=== PATIENT | female | born 1990 | race American Indian/Alaskan Native ===

== ENCOUNTER 2016-12-15 21:41 | Inpatient (IN) | payer BC ==
[~2016-12-15 21:41] MED LIST: Oxytocin 10 Units/1 ML SDV IM ONE
[2016-12-15] MEDS ORDERED: Sodium Chloride 0.9% 10 ML Syringe FLUSH PRN (22:35)
[2016-12-15] MEDS ORDERED: Ampicillin 2 GM in Sodium Chloride 0.9% 100 ML IV ONE ×2 (22:35→23:00)
[2016-12-15] MEDS ORDERED: Ampicillin 1 GM in Sodium Chloride 0.9% 50 ML IV SCH (23:00)
[2016-12-15] MEDS: Lactated Ringers 1,000 ML IV SCH (23:10)
[2016-12-15] MEDS ORDERED: Ampicillin 1 GM AdvVial IV ONE (23:14)
[2016-12-16] MEDS ORDERED: Oxytocin 10 UNIT in Sodium Chloride 0.9% 1,000 ML IV SCH (02:00)
[2016-12-16] MEDS ORDERED: Calcium Carbonate 500 MG Tab.Chew PO PRN ×2 (02:43→10:39)
[2016-12-16] MEDS: Ampicillin 1 GM in Sodium Chloride 0.9% 50 ML IV SCH ×4 (03:03→15:30)
[2016-12-16] MEDS ORDERED: fentaNYL 300 MCG in Ropivacaine 200 ML IV ONE (05:45)
[2016-12-16] MEDS ORDERED: fentaNYL 100 MCG/2 ML SDV IV ONE (05:45)
[2016-12-16] MEDS: Lactated Ringers 1,000 ML IV SCH ×3 (06:35→18:23)
[2016-12-16] MEDS ORDERED: ePHEDrine 50 MG/ML SDV IVPUSH PRN ×2 (08:54→12:41)
[2016-12-16] MEDS ORDERED: Naloxone 0.4 MG in Sodium Chloride 0.9% 100 ML IV PRN ×2 (08:54→12:41)
[2016-12-16] MEDS ORDERED: Naloxone 0.4 MG/ML SDV IVPUSH PRN ×3 (08:54→12:41)
[2016-12-16] MEDS ORDERED: diphenhydrAMINE 50 MG/ML SDV IVPUSH PRN ×3 (08:54→12:41)
[2016-12-16] MEDS ORDERED: Promethazine 25 MG/ML SDV IV PRN ×2 (08:54→12:41)
[2016-12-16] MEDS ORDERED: hydrOXYzine HCl 50 MG/ML SDV IM PRN ×3 (08:57→12:41)
[2016-12-16] MEDS ORDERED: Ondansetron 4 MG/2 ML SDV IVPUSH PRN ×2 (08:59→12:47)
[2016-12-16] MEDS ORDERED: ROPIVACAINE IV ONE (10:25)
[2016-12-16] MEDS ORDERED: fentaNYL 100 MCG/2 ML SDV EPIDUR ONE (10:25)
[2016-12-16] MEDS ORDERED: Morphine PF 10 MG/10 ML SDV EPIDUR ONE (10:25)
[2016-12-16] MEDS ORDERED: FENTANYL IV ONE (10:25)
[2016-12-16] MEDS ORDERED: Scopolamine 1.5 MG Transdermal Patch TOP SCH (12:41)
[2016-12-16] MEDS ORDERED: Nalbuphine 10 MG/1 ML Vial IVPUSH PRN (12:41)
[2016-12-16] MEDS ORDERED: Naltrexone 50 MG Tab PO PRN (12:45)
[2016-12-16] MEDS ORDERED: Naltrexone 50 MG Tab PO SCH (12:45)
--- NOTE | 2016-12-16 14:25 | PCM.HPR ---
H & P Addendum review - H & P Addendum Review Date of Original H & P: 12/15/16 Date Reviewed: 12/16/16 Time Reviewed: 13:00 Patient was examined: Changes Please note any Changes: now at 39w0d with PAPI: 12/23/2016. presented to [facility] for SROM around 2030 for clear moderate fluids. seen in the clinic prior that day and exam as noted in H&P. NO cervical change/station/presentation-per nursing intact. No fevers or merino. no n/v. no vaginal bleeding or painful urterine contractions with good movement. GBS + without allergies so started on ampicillin. will watch for onset progression from latent phase to active phase labor. - Problem List (1) SROM (spontaneous rupture of membranes) SNOMED Code(s): 134256223 ICD Code: [id number] - Status: Acute Priority: High Current Visit: Yes Onset Date: 12/15/16 Problem Details: Clear-moderate (2) First stage of labor SNOMED Code(s): 1385123 ICD Code: [id number] - Status: Acute Priority: High Current Visit: Yes Onset Date: 12/15/16 (3) Normal , first SNOMED Code(s): 11022664, 251782758, 608430848, 606811533 ICD Code: Z34.00 - ENCNTR FOR SUPRVSN OF NORMAL FIRST , UNSP TRIMESTER Status: Acute Current Visit: Yes Qualifiers: Trimester: third trimester Qualified Code(s): Z34.03 - Encounter for supervision of normal first , third trimester (4) Group B Streptococcus carrier, antepartum SNOMED Code(s): 3953622805167 ICD Code: O99.820 - STREPTOCOCCUS B CARRIER STATE COMPLICATING Status: Acute Priority: High Current Visit: Yes Problem Details: Ampicillin per GBS protocol. (5) Antepartum anemia SNOMED Code(s): 859411035 ICD Code: O99.019 - ANEMIA COMPLICATING , UNSPECIFIED TRIMESTER Status: Chronic Priority: Medium Current Visit: Yes Qualifiers: Trimester: third trimester Qualified Code(s): O99.013 - Anemia complicating , third trimester (6) Analgesia SNOMED Code(s): 76797056 ICD Code: R20.0 - ANESTHESIA OF SKIN Status: Acute Priority: High Current Visit: Yes Problem Details: Epidural placement failed. Intrathecal given. (7) Blood type A+ SNOMED Code(s): 545064318 ICD Code: Z67.10 - TYPE A BLOOD, RH POSITIVE Status: Chronic Current Visit: Yes (8) Not immune to rubella SNOMED Code(s): 141832160 ICD Code: Z78.9 - OTHER SPECIFIED HEALTH STATUS Status: Chronic Current Visit: Yes Problem Details: will receive immunization post . (9) History of depression SNOMED Code(s): 198605144 ICD Code: Z86.59 - PERSONAL HISTORY OF OTHER MENTAL AND BEHAVIORAL DISORDERS Status: Inactive Current Visit: Yes Problem Details: after several attemps/failed. will monitor site. (10) History of epidural anesthesia SNOMED Code(s): 531722067 ICD Code: Z98.890 - OTHER SPECIFIED POSTPROCEDURAL STATES Status: Acute Priority: High Current Visit: Yes Problem List Initiated/Reviewed/Updated: Yes Orders Last 24hrs: Active Orders 24 hr Category Date Time Status Patient Status [ADT] Routine ADT 12/15/16 22:35 Active Antiembolic Devices [RC] .Routine Care 12/16/16 14:14 Ordered Communication Order [RC] ASDIRECTED Care 12/15/16 22:35 Active Heart Tones [RC] PER UNIT ROUTINE Care 12/16/16 14:11 Ordered Notify Provider Vital Signs [RC] PRN Care 12/15/16 22:35 Active Notify Provider [RC] PRN Care 12/15/16 22:35 Active Up ad Rafaela [RC] ASDIRECTED Care 12/16/16 14:11 Ordered Up to Chair [RC] ASDIRECTED Care 12/16/16 14:11 Ordered VTE/DVT Education [RC] Click to Edit Care 12/16/16 14:14 Ordered Vital Signs [RC] PER UNIT ROUTINE Care 12/15/16 22:35 Active Nothing Per Oral Diet [DIET] Diet 12/16/16 Dinner Ordered CBC W/O DIFF,HEMOGRAM [HEME] AM Lab 12/17/16 05:11 Ordered Ampicillin 1 gm Med 12/16/16 11:00 Active Sodium Chloride 0.9% [Normal Saline] 50 ml IV Q4H Calcium Carbonate [Tums] Med 12/16/16 10:39 Active 500 mg PO Q2H PRN Lactated Ringers [Ringers, Lactated] 1,000 ml Med 12/15/16 22:45 Active IV ASDIRECTED Nalbuphine [Nubain] Med 12/16/16 12:41 Active 10 mg IVPUSH Q1H PRN Naloxone [Narcan] Med 12/16/16 08:54 Active 0.1 mg IVPUSH ASDIRECTED PRN Naloxone [Narcan] Med 12/16/16 12:41 Active 0.1 mg IVPUSH ASDIRECTED PRN Naloxone [Narcan] Med 12/16/16 12:41 Active 0.2 mg IVPUSH ASDIRECTED PRN Naloxone [Narcan] 0.4 mg Med 12/16/16 08:54 Active Sodium Chloride 0.9% [Normal Saline] 100 ml IV ASDIRECTED Naloxone [Narcan] 0.4 mg Med 12/16/16 12:41 Active Sodium Chloride 0.9% [Normal Saline] 100 ml IV ASDIRECTED Naltrexone Med 12/16/16 12:45 Active 50 mg PO ASDIRECTED PRN Naltrexone Med 12/16/16 12:45 Active 50 mg PO ONETIME Ondansetron [Zofran] Med 12/16/16 12:47 Active 4 mg IVPUSH Q6H PRN Oxytocin [Pitocin] 10 unit Med 12/16/16 02:00 Active Sodium Chloride 0.9% [Normal Saline] 1,000 ml IV TITRATE Promethazine [Phenergan] Med 12/16/16 12:41 Active 0 mg IV Q4H PRN Remove Patch Med 12/16/16 12:45 Active 1 ea TRDERM ASDIRECTED Scopolamine [Transderm-Scop] Med 12/16/16 12:41 Active 1.5 mg TOP ONETIME Sodium Chloride 0.9% [Saline Flush] Med 12/15/16 22:35 Active 10 ml FLUSH ASDIRECTED PRN diphenhydrAMINE [Benadryl] Med 12/16/16 08:54 Active 25 mg IVPUSH ASDIRECTED PRN diphenhydrAMINE [Benadryl] Med 12/16/16 12:41 Active 25 mg IVPUSH ASDIRECTED PRN ePHEDrine [ePHEDrine Sulfate] Med 12/16/16 12:41 Active 5 mg IVPUSH ASDIRECTED PRN hydrOXYzine HCl [Vistaril] Med 12/16/16 12:41 Active 25 - 50 mg IM Q4H PRN hydrOXYzine HCl [Vistaril] Med 12/16/16 12:41 Active 25 - 50 mg IM Q6H PRN DVT/VTE Prophylaxis Reflex [OM.PC] Routine Oth 12/16/16 14:11 Ordered Electronic Heart Tones Ext w TOCO [WOMSER] Oth 12/15/16 22:45 Ordered CONTINUOUS Peripheral IV Insertion Adult [OM.PC] Routine Oth 12/15/16 22:35 Ordered Saline Lock Insert [OM.PC] Routine Oth 12/15/16 22:35 Ordered Resuscitation Status Routine Resus Stat 12/15/16 22:35 Ordered Medication Orders Calcium Carbonate/Glycine (Tums) 500 mg PO Q2H PRN PRN Reason: Indigestion Diphenhydramine HCl (Benadryl) 25 mg IVPUSH ASDIRECTED PRN PRN Reason: PRURITUS Diphenhydramine HCl (Benadryl) 25 mg IVPUSH ASDIRECTED PRN PRN Reason: SEVERE EXTRAPYRAMIDAL SYMP Ephedrine Sulfate (Ephedrine Sulfate) 5 mg IVPUSH ASDIRECTED PRN PRN Reason: HYPOTENSION Hydroxyzine HCl (Vistaril) 25 - 50 mg IM Q6H PRN PRN Reason: PRURITUS Hydroxyzine HCl (Vistaril) 25 - 50 mg IM Q4H PRN PRN Reason: N/V Lactated Ringer's (Ringers, Lactated) 1,000 mls @ 125 mls/hr IV ASDIRECTED LEÓN Last Admin: 12/16/16 09:52 Dose: 125 mls/hr Infusion: 12/16/16 09:52 Dose: 125 mls/hr Admin: 12/16/16 06:35 Dose: 125 mls/hr Infusion: 12/16/16 06:35 Dose: 125 mls/hr Admin: 12/15/16 23:10 Dose: 125 mls/hr Oxytocin 10 unit/ Sodium (Chloride) 1,001 mls @ 12.01 mls/hr IV TITRATE LEÓN; 2 MUNITS/MIN PRN Reason: Protocol Last Titration: 12/16/16 13:33 Dose: 14 munits/min, 84.08 mls/hr Titration: 12/16/16 13:03 Dose: 12 munits/min, 72.07 mls/hr Titration: 12/16/16 12:00 Dose: 10 munits/min, 60.06 mls/hr Titration: 12/16/16 06:38 Dose: 8 munits/min, 48.04 mls/hr Titration: 12/16/16 03:35 Dose: 6 munits/min, 36.03 mls/hr Titration: 12/16/16 03:00 Dose: 4 munits/min, 24.02 mls/hr Admin: 12/16/16 02:25 Dose: 2 munits/min, 12.01 mls/hr Ampicillin Sodium 1 gm/ Sodium (Chloride) 50 mls @ 100 mls/hr IV Q4H LEÓN Last Admin: 12/16/16 11:40 Dose: 100 mls/hr Naloxone HCl 0.4 mg/ Sodium (Chloride) 101 mls @ 25 mls/hr IV ASDIRECTED PRN PRN Reason: PER ORDER OF ANESTHESIA Naloxone HCl 0.4 mg/ Sodium (Chloride) 101 mls @ 25 mls/hr IV ASDIRECTED PRN PRN Reason: RESPIRATORY STATUS Miscellaneous Information (Remove Patch) 1 ea TRDERM ASDIRECTED LEÓN Nalbuphine HCl (Nubain) 10 mg IVPUSH Q1H PRN PRN Reason: PRURITUS Naloxone HCl (Narcan) 0.1 mg IVPUSH ASDIRECTED PRN PRN Reason: RESPIRATORY STATUS Naloxone HCl (Narcan) 0.1 mg IVPUSH ASDIRECTED PRN PRN Reason: RESPIRATROY STATUS Naloxone HCl (Narcan) 0.2 mg IVPUSH ASDIRECTED PRN PRN Reason: REVERSAL Naltrexone HCl (Naltrexone) 50 mg PO ONETIME LEÓN Naltrexone HCl (Naltrexone) 50 mg PO ASDIRECTED PRN PRN Reason: REVERSAL Ondansetron HCl (Zofran) 4 mg IVPUSH Q6H PRN PRN Reason: nausea Promethazine HCl (Phenergan) 0 mg IV Q4H PRN PRN Reason: N/V Scopolamine (Transderm-Scop) 1.5 mg TOP ONETIME LEÓN Sodium Chloride (Saline Flush) 10 ml FLUSH ASDIRECTED PRN PRN Reason: Keep Vein Open Assessment/Plan Comment:: 1. monitor for onset labor. 2. start amp for gbs 3. pain management prn 4. up add rafaela 5. start pit at 4 hours if onset of labor not accomplished. 6. Anticipated . Please see scanned H&P for further details.
[2016-12-16] MEDS ORDERED: fentaNYL 100 MCG/2 ML SDV ITHECAL ONE (15:35)
[2016-12-16] MEDS: Oxytocin 10 Units/1 ML SDV IM ONE (19:12)
[2016-12-16] MEDS: Lidocaine 1% 20 ML MDV INJECT ONE (19:30)
--- NOTE | 2016-12-16 20:54 | PCM.DEL ---
L & D Note - General Info Date of Service: 12/16/16 Mother's Due Date: 12/23/16 - Delivery Note Labor: spontaneous, augmented by oxytocin Delivery Outcome: Livebirth Infant Delivery Method: Spontaneous Vaginal Delivery Delivery Mode: Spontaneous Presentation: Right Occiput Anterior (LIU) Nuchal cord: none Prep: povidone-iodine (betadine Anesthesia Type: Local, Intrathecal Anesthetic: lidocaine (xylocaine) 1% plain Local anesthetic volume: other (10 ml) Amniotic Fluid Description: Clear Episiotomy Type: None Laceration: 2nd degree, vaginal Suture type: vicryl Suture size: 3-0 Placenta: intact, spontaneous Cord: 3 vessels Estimated blood loss: 300 Resuscitation needed: No : bulb syringe, blanket used Provider: Megan Raya Score 1 min: 9 Score 5 min: 9 Second Stage Interventions: Reports: Encouragement Given, Laboring Down, Pushing Effectively, Pushing, McRobert's Position - General Info Date of Service: 12/16/16 - Patient Data Vitals - most recent: Last Vital Signs Temp 98.3 F 12/16/16 09:33 Pulse 68 12/16/16 09:33 Resp 18 12/16/16 09:33 BP 120/61 12/16/16 09:33 Pulse Ox 98 12/16/16 09:33 Weight - most recent: 117.934 kg I&O - last 24 hours: Intake & Output 12/16/16 12/16/16 12/16/16 06:59 14:59 22:59 Intake Total 600 1000 Output Total 500 625 Balance 100 375 Lab Results last 24 hrs: Laboratory Results - last 24 hr 12/15/16 Range/Units 22:48 WBC 10.1 (4.5-12.0) X10-3/uL RBC 4.20 (3.23-5.20) x10(6)uL Hgb 11.4 L (11.5-15.5) g/dL Hct 33.7 (30.0-51.3) % MCV 80.4 (80-96) fL MCH 27.1 L (27.7-33.6) pg MCHC 33.8 (32.2-35.4) g/dL RDW 13.2 (11.5-15.5) % Plt Count 352 (125-369) X10(3)uL MPV 7.9 (7.4-10.4) fL Add Manual Diff Yes Neutrophils % (Manual) 79 (46-82) % Lymphocytes % (Manual) 15 (13-37) % Monocytes % (Manual) 6 (4-12) % Med Orders - Current: Current Medications Calcium Carbonate/Glycine (Tums) 500 mg PO Q2H PRN PRN Reason: Indigestion Diphenhydramine HCl (Benadryl) 25 mg IVPUSH ASDIRECTED PRN PRN Reason: PRURITUS Diphenhydramine HCl (Benadryl) 25 mg IVPUSH ASDIRECTED PRN PRN Reason: SEVERE EXTRAPYRAMIDAL SYMP Ephedrine Sulfate (Ephedrine Sulfate) 5 mg IVPUSH ASDIRECTED PRN PRN Reason: HYPOTENSION Hydroxyzine HCl (Vistaril) 25 - 50 mg IM Q6H PRN PRN Reason: PRURITUS Hydroxyzine HCl (Vistaril) 25 - 50 mg IM Q4H PRN PRN Reason: N/V Lactated Ringer's (Ringers, Lactated) 1,000 mls @ 125 mls/hr IV ASDIRECTED LEÓN Last Admin: 12/16/16 18:23 Dose: 125 mls/hr Oxytocin 10 unit/ Sodium (Chloride) 1,001 mls @ 12.01 mls/hr IV TITRATE LEÓN; 2 MUNITS/MIN PRN Reason: Protocol Last Titration: 12/16/16 19:09 Dose: 16 munits/min, 96.09 mls/hr Ampicillin Sodium 1 gm/ Sodium (Chloride) 50 mls @ 100 mls/hr IV Q4H LEÓN Last Admin: 12/16/16 15:30 Dose: 100 mls/hr Naloxone HCl 0.4 mg/ Sodium (Chloride) 101 mls @ 25 mls/hr IV ASDIRECTED PRN PRN Reason: PER ORDER OF ANESTHESIA Naloxone HCl 0.4 mg/ Sodium (Chloride) 101 mls @ 25 mls/hr IV ASDIRECTED PRN PRN Reason: RESPIRATORY STATUS Miscellaneous Information (Remove Patch) 1 ea TRDERM ASDIRECTED LEÓN Nalbuphine HCl (Nubain) 10 mg IVPUSH Q1H PRN PRN Reason: PRURITUS Naloxone HCl (Narcan) 0.1 mg IVPUSH ASDIRECTED PRN PRN Reason: RESPIRATORY STATUS Naloxone HCl (Narcan) 0.1 mg IVPUSH ASDIRECTED PRN PRN Reason: RESPIRATROY STATUS Naloxone HCl (Narcan) 0.2 mg IVPUSH ASDIRECTED PRN PRN Reason: REVERSAL Naltrexone HCl (Naltrexone) 50 mg PO ONETIME LEÓN Naltrexone HCl (Naltrexone) 50 mg PO ASDIRECTED PRN PRN Reason: REVERSAL Ondansetron HCl (Zofran) 4 mg IVPUSH Q6H PRN PRN Reason: nausea Promethazine HCl (Phenergan) 0 mg IV Q4H PRN PRN Reason: N/V Scopolamine (Transderm-Scop) 1.5 mg TOP ONETIME LEÓN Last Admin: 12/16/16 15:27 Dose: 1.5 mg Sodium Chloride (Saline Flush) 10 ml FLUSH ASDIRECTED PRN PRN Reason: Keep Vein Open Discontinued Medications Ampicillin Sodium (Ampicillin) Confirm Administered Dose 2 gm IV .STK-MED ONE Stop: 12/15/16 23:15 Last Admin: 12/15/16 23:24 Dose: Not Given Calcium Carbonate/Glycine (Tums) 500 mg PO Q2H PRN PRN Reason: Indigestion Last Admin: 12/16/16 03:02 Dose: 500 mg Diphenhydramine HCl (Benadryl) 25 mg IVPUSH ASDIRECTED PRN PRN Reason: PRURITUS Ephedrine Sulfate (Ephedrine Sulfate) 5 mg IVPUSH ASDIRECTED PRN PRN Reason: HYPOTENSION Hydroxyzine HCl (Vistaril) 25 - 50 mg IM Q6H PRN PRN Reason: PRURITUS &/OR NV Ampicillin Sodium 2 gm/ Sodium (Chloride) 100 mls @ 200 mls/hr IV ONETIME ONE Stop: 12/15/16 23:29 Last Admin: 12/15/16 23:23 Dose: 200 mls/hr Ampicillin Sodium 1 gm/ Sodium (Chloride) 50 mls @ 100 mls/hr IV Q4H LEÓN Last Admin: 12/16/16 06:53 Dose: 100 mls/hr Ondansetron HCl (Zofran) 4 mg IVPUSH Q6H PRN PRN Reason: 1ST CHOICE FOR N/V Promethazine HCl (Phenergan) 6.25 - 12.5 mg IV Q4H PRN PRN Reason: NAUSEA AND VOMITING - Exam General: alert, oriented, cooperative HEENT: Mucous membr. moist/pink Neck: supple Lungs: Clear to auscultation, Normal respiratory effort Cardiovascular: Regular Rate, Regular Rhythm Abdomen: bowel sounds present, soft, no distension, rigidity, tenderness (as expected. fundus firm) (Female) Exam: Other (vaginal 2nd degree repair intact. cervix intact, no sign of PPH. VAG/Rect exam intact. ) Extremities: no calf tenderness, edema (trace) Skin: warm, dry. No: rash, ecchymosis Neurological: no new focal deficit Psy/Mental Status: alert, normal affect, normal mood - Problem List & Annotations (1) (normal spontaneous vaginal delivery) SNOMED Code(s): 16273744 Code(s): O80 - ENCOUNTER FOR FULL-TERM UNCOMPLICATED DELIVERY Status: Acute Current Visit: Yes Onset Date: 12/16/16 (2) Second degree perineal laceration during delivery, delivered SNOMED Code(s): 4917502 Code(s): O70.1 - SECOND DEGREE PERINEAL LACERATION DURING DELIVERY Status: Acute Priority: Medium Current Visit: Yes Onset Date: 12/16/16 (3) anemia SNOMED Code(s): 340845664 Code(s): O90.81 - ANEMIA OF THE PUERPERIUM Status: Acute Priority: Medium Current Visit: Yes Onset Date: 12/16/16 (4) Breast feeding status of mother SNOMED Code(s): 016627409 Code(s): Z39.1 - ENCOUNTER FOR CARE AND EXAMINATION OF LACTATING MOTHER Status: Acute Priority: High Current Visit: Yes Onset Date: 12/16/16 (5) Not immune to rubella SNOMED Code(s): 799868369 Code(s): Z78.9 - OTHER SPECIFIED HEALTH STATUS Status: Chronic Current Visit: Yes Annotation/Comment:: will receive immunization post . (6) Group B Streptococcus carrier, antepartum SNOMED Code(s): 1892764887986 Code(s): O99.820 - STREPTOCOCCUS B CARRIER STATE COMPLICATING Status: Resolved Priority: High Current Visit: Yes Annotation/Comment:: Ampicillin per GBS protocol. (7) Antepartum anemia SNOMED Code(s): 882436690 Code(s): O99.019 - ANEMIA COMPLICATING , UNSPECIFIED TRIMESTER Status: Chronic Priority: Medium Current Visit: Yes Qualifiers: Trimester: third trimester Qualified Code(s): O99.013 - Anemia complicating , third trimester (8) Group B Streptococcus carrier, delivered, current hospitalization SNOMED Code(s): 1714802044438, 7401968040952 Code(s): O99.824 - STREPTOCOCCUS B CARRIER STATE COMPLICATING CHILDBIRTH Status: Acute Current Visit: Yes (9) Analgesia SNOMED Code(s): 36941788 Code(s): R20.0 - ANESTHESIA OF SKIN Status: Resolved Priority: High Current Visit: Yes Annotation/Comment:: Epidural placement failed. Intrathecal given. (10) Blood type A+ SNOMED Code(s): 271070899 Code(s): Z67.10 - TYPE A BLOOD, RH POSITIVE Status: Chronic Current Visit : Yes (11) SROM (spontaneous rupture of membranes) SNOMED Code(s): 539347272 Code(s): MEN7171 - Status: Resolved Priority: High Current Visit: Yes Onset Date: 12/15/16 Annotation/Comment:: Clear-moderate (12) History of epidural anesthesia SNOMED Code(s): 391886213 Code(s): Z98.890 - OTHER SPECIFIED POSTPROCEDURAL STATES Status: Resolved Priority: High Current Visit: Yes (13) History of depression SNOMED Code(s): 578624875 Code(s): Z86.59 - PERSONAL HISTORY OF OTHER MENTAL AND BEHAVIORAL DISORDERS Status: Inactive Current Visit: Yes Annotation/Comment:: (14) First stage of labor SNOMED Code(s): 9662429 Code(s): EVF5141 - Status: Resolved Priority: High Current Visit: Yes Onset Date: 12/15/16 (15) Normal , first SNOMED Code(s): 89943021, 897134561, 985328462, 766356693 Code(s): Z34.00 - ENCNTR FOR SUPRVSN OF NORMAL FIRST , UNSP TRIMESTER Status: Resolved Current Visit: Yes Qualifiers: Trimester: third trimester Qualified Code(s): Z34.03 - Encounter for supervision of normal first , third trimester - Problem List Review Problem List Initiated/Reviewed/Updated: Yes - My Orders Last 24 Hours: My Active Orders 12/15/16 22:35 Patient Status [ADT] Routine Communication Order [RC] ASDIRECTED Notify Provider Vital Signs [RC] PRN Notify Provider [RC] PRN Vital Signs [RC] PER UNIT ROUTINE Sodium Chloride 0.9% [Saline Flush] 10 ml FLUSH ASDIRECTED PRN Peripheral IV Insertion Adult [OM.PC] Routine Saline Lock Insert [OM.PC] Routine Resuscitation Status Routine 12/15/16 22:45 Lactated Ringers [Ringers, Lactated] 1,000 ml IV ASDIRECTED Electronic Heart Tones Ext w TOCO [WOMSER] CONTINUOUS 12/16/16 02:00 Oxytocin [Pitocin] 10 unit Sodium Chloride 0.9% [Normal Saline] 1,000 ml IV TITRATE 12/16/16 10:39 Calcium Carbonate [Tums] 500 mg PO Q2H PRN 12/16/16 11:00 Ampicillin 1 gm Sodium Chloride 0.9% [Normal Saline] 50 ml IV Q4H 12/16/16 12:41 Nalbuphine [Nubain] 10 mg IVPUSH Q1H PRN Naloxone [Narcan] 0.1 mg IVPUSH ASDIRECTED PRN Naloxone [Narcan] 0.2 mg IVPUSH ASDIRECTED PRN Naloxone [Narcan] 0.4 mg Sodium Chloride 0.9% [Normal Saline] 100 ml IV ASDIRECTED Promethazine [Phenergan] 0 mg IV Q4H PRN Scopolamine [Transderm-Scop] 1.5 mg TOP ONETIME diphenhydrAMINE [Benadryl] 25 mg IVPUSH ASDIRECTED PRN ePHEDrine [ePHEDrine Sulfate] 5 mg IVPUSH ASDIRECTED PRN hydrOXYzine HCl [Vistaril] 25 - 50 mg IM Q4H PRN hydrOXYzine HCl [Vistaril] 25 - 50 mg IM Q6H PRN 12/16/16 12:45 Naltrexone 50 mg PO ASDIRECTED PRN Naltrexone 50 mg PO ONETIME Remove Patch 1 ea TRDERM ASDIRECTED 12/16/16 12:47 Ondansetron [Zofran] 4 mg IVPUSH Q6H PRN 12/16/16 14:11 Heart Tones [RC] PER UNIT ROUTINE Up ad Stephanie [RC] ASDIRECTED Up to Chair [RC] ASDIRECTED DVT/VTE Prophylaxis Reflex [OM.PC] Routine 12/16/16 14:14 Antiembolic Devices [RC] .Routine VTE/DVT Education [RC] Click To Edit 12/16/16 16:25 Urinary Catheter Assessment [RC] QSHIFT 12/16/16 16:30 Urinary Catheter Insertion [Insert Urinary Catheter] [OM.PC] Q24H 12/16/16 Dinner Nothing Per Oral Diet [DIET] 12/17/16 05:11 CBC W/O DIFF,HEMOGRAM [HEME] AM - Plan Plan:: DAY: 0 1. Healthy mom/ with uncomplicated vaginal delivery. 2. Recieved amp for gbs 3. pain management prn 4. up add stephanie, and routine monitoring and post cares. 5. plans to breast feed. labs in the morning. Debriefed on labor/delivery/repair/ status and expected course of cares. all questions answered and she agrees with planned management. Anticipate discharge with in 48-72h.
[2016-12-16] MEDS ORDERED: Acetaminophen 325 MG Tab PO PRN (20:57)
[2016-12-16] MEDS ORDERED: Hydrocortisone 2.5% Crm 30 GM Tube TOP PRN (20:57)
[2016-12-16] MEDS ORDERED: Witch Hazel Medicated Pads 40/Jar TOP PRN (20:57)
[2016-12-16] MEDS ORDERED: Measles, Mumps & Rubella Vaccine 0.5 ML SDV SUBCUT ONE (20:57)
[2016-12-16] MEDS ORDERED: Methylergonovine 0.2 MG/1 ML Amp IM PRN (20:57)
[2016-12-16] MEDS ORDERED: Simethicone 80 MG Tab.Chew PO PRN (20:57)
[2016-12-16] MEDS ORDERED: Famotidine 20 MG Tab PO PRN (20:57)
[2016-12-16] MEDS ORDERED: Docusate Sodium 100 MG Cap PO PRN (20:57)
[2016-12-16] MEDS: Ibuprofen 600 MG Tab PO PRN (21:37)
[2016-12-17] MEDS: Ibuprofen 600 MG Tab PO PRN ×3 (06:27→22:10)
[2016-12-17] MEDS: Prenatal Multivitamin with Calcium/Folic Acid/Fe Fumarate Cap PO SCH (11:00)
--- NOTE | 2016-12-17 16:26 | PCM.PNPP ---
- General Info Date of Service: 12/17/16 Subjective Update: PPD1: Josefina is a now a 26 y s/p at 39w0d to liveborn male (Brisa Conroy) with wt 7#10oz. Apgars 9/9. both doing well. breasting going well. lochia reduced. abdominal/jaylon pain controlled with OTC. Tolerating diet and ambulation. Good urine output. No BM. on stool softner. mild post anemia. no lightheadedness or dizziness on standing. no merino. back pain improved. swelling in legs improved without pain. bonding with . rooming in. Nursing staff without concerns. wellbeing reassuring. Maternal labs were GBS pos-received full course ampicillin prior to delivery, Rubella -non- immune, RPR neg, Blood Type A+. Functional Status: Reports: pain controlled, tolerating diet, ambulating, urinating - Review of Systems General: Reports: No Symptoms HEENT: Reports: no symptoms Pulmonary: Reports: no symptoms Cardiovascular: Reports: No Symptoms Gastrointestinal: Reports: No symptoms Genitourinary: Reports: no symptoms Musculoskeletal: Reports: no symptoms Skin: Reports: no symptoms Neurological: Reports: No Symptoms Psychiatric: Reports: no symptoms - General Info Date of Service: 12/17/16 - Patient Data Vital Signs - most recent: Last Vital Signs Temp 98.4 F 12/17/16 12:00 Pulse 80 12/17/16 12:00 Resp 16 12/17/16 12:00 BP 118/61 12/17/16 12:00 Pulse Ox 99 12/17/16 12:00 Weight - most recent: 117.934 kg I&O - last 24 hours: Intake & Output 12/17/16 12/17/16 12/17/16 06:59 14:59 22:59 Intake Total 1500 Balance 1500 Lab Results - last 24 hrs: Laboratory Tests 12/15/16 12/17/16 Range/Units 22:48 06:10 WBC 10.1 12.7 H (4.5-12.0) X10-3/uL RBC 4.20 3.49 (3.23-5.20) x10(6)uL Hgb 11.4 L 9.3 L (11.5-15.5) g/dL Hct 33.7 28.4 L (30.0-51.3) % MCV 80.4 81.2 (80-96) fL MCH 27.1 L 26.6 L (27.7-33.6) pg MCHC 33.8 32.7 (32.2-35.4) g/dL RDW 13.2 13.7 (11.5-15.5) % Plt Count 352 301 (125-369) X10(3)uL MPV 7.9 (7.4-10.4) fL Add Manual Diff Yes Neutrophils % (Manual) 79 (46-82) % Lymphocytes % (Manual) 15 (13-37) % Monocytes % (Manual) 6 (4-12) % Med Orders - Current: Current Medications Acetaminophen (Tylenol) 650 mg PO Q4H PRN PRN Reason: mild pain or fever Diphenhydramine HCl (Benadryl) 25 mg IVPUSH ASDIRECTED PRN PRN Reason: PRURITUS Diphenhydramine HCl (Benadryl) 25 mg IVPUSH ASDIRECTED PRN PRN Reason: SEVERE EXTRAPYRAMIDAL SYMP Docusate Sodium (Colace) 100 mg PO BID PRN PRN Reason: Constipation Last Admin: 12/16/16 21:38 Dose: 100 mg Ephedrine Sulfate (Ephedrine Sulfate) 5 mg IVPUSH ASDIRECTED PRN PRN Reason: HYPOTENSION Famotidine (Pepcid) 20 mg PO BID PRN PRN Reason: Heartburn Last Admin: 12/16/16 21:38 Dose: 20 mg Hydrocortisone (Proctozone-Hc 2.5% Crm) 0 gm TOP ASDIRECTED PRN PRN Reason: Itching Hydroxyzine HCl (Vistaril) 25 - 50 mg IM Q6H PRN PRN Reason: PRURITUS Hydroxyzine HCl (Vistaril) 25 - 50 mg IM Q4H PRN PRN Reason: N/V Naloxone HCl 0.4 mg/ Sodium (Chloride) 101 mls @ 25 mls/hr IV ASDIRECTED PRN PRN Reason: PER ORDER OF ANESTHESIA Naloxone HCl 0.4 mg/ Sodium (Chloride) 101 mls @ 25 mls/hr IV ASDIRECTED PRN PRN Reason: RESPIRATORY STATUS Ibuprofen (Motrin) 600 mg PO Q4H PRN PRN Reason: Pain Last Admin: 12/17/16 15:36 Dose: 600 mg Methylergonovine Maleate (Methergine) 0.2 mg IM ONETIME PRN PRN Reason: Excessive vaginal bleeding Miscellaneous Information (Remove Patch) 1 ea TRDERM ASDIRECTED [facility] Nalbuphine HCl (Nubain) 10 mg IVPUSH Q1H PRN PRN Reason: PRURITUS Naloxone HCl (Narcan) 0.1 mg IVPUSH ASDIRECTED PRN PRN Reason: RESPIRATORY STATUS Naloxone HCl (Narcan) 0.1 mg IVPUSH ASDIRECTED PRN PRN Reason: RESPIRATROY STATUS Naloxone HCl (Narcan) 0.2 mg IVPUSH ASDIRECTED PRN PRN Reason: REVERSAL Naltrexone HCl (Naltrexone) 50 mg PO ONETIME [facility] Last Admin: 12/16/16 21:38 Dose: 50 mg Naltrexone HCl (Naltrexone) 50 mg PO ASDIRECTED PRN PRN Reason: REVERSAL Ondansetron HCl (Zofran) 4 mg IVPUSH Q6H PRN PRN Reason: nausea Multivit/Folic Acid/Iron (-U) 1 each PO DAILY [facility] Last Admin: 12/17/16 11:00 Dose: 1 each Promethazine HCl (Phenergan) 0 mg IV Q4H PRN PRN Reason: N/V Scopolamine (Transderm-Scop) 1.5 mg TOP ONETIME [facility] Last Admin: 12/16/16 15:27 Dose: 1.5 mg Simethicone (Simethicone) 80 mg PO Q4H PRN PRN Reason: Gas Sodium Chloride (Saline Flush) 10 ml FLUSH ASDIRECTED PRN PRN Reason: Keep Vein Open Witamy Muhammadel (Tucks) 1 pad TOP ASDIRECTED PRN PRN Reason: Hemorrhoids Discontinued Medications Ampicillin Sodium (Ampicillin) Confirm Administered Dose 2 gm IV .STK-MED ONE Stop: 12/15/16 23:15 Last Admin: 12/15/16 23:24 Dose: Not Given Calcium Carbonate/Glycine (Tums) 500 mg PO Q2H PRN PRN Reason: Indigestion Last Admin: 12/16/16 03:02 Dose: 500 mg Calcium Carbonate/Glycine (Tums) 500 mg PO Q2H PRN PRN Reason: Indigestion Diphenhydramine HCl (Benadryl) 25 mg IVPUSH ASDIRECTED PRN PRN Reason: PRURITUS Ephedrine Sulfate (Ephedrine Sulfate) 5 mg IVPUSH ASDIRECTED PRN PRN Reason: HYPOTENSION Hydroxyzine HCl (Vistaril) 25 - 50 mg IM Q6H PRN PRN Reason: PRURITUS &/OR NV Lactated Ringer's (Ringers, Lactated) 1,000 mls @ 125 mls/hr IV ASDIRECTED [facility] Last Admin: 12/16/16 18:23 Dose: 125 mls/hr Ampicillin Sodium 2 gm/ Sodium (Chloride) 100 mls @ 200 mls/hr IV ONETIME ONE Stop: 12/15/16 23:29 Last Admin: 12/15/16 23:23 Dose: 200 mls/hr Ampicillin Sodium 1 gm/ Sodium (Chloride) 50 mls @ 100 mls/hr IV Q4H [facility] Last Admin: 12/16/16 06:53 Dose: 100 mls/hr Oxytocin 10 unit/ Sodium (Chloride) 1,001 mls @ 12.01 mls/hr IV TITRATE LE[facility]N; 2 MUNITS/MIN PRN Reason: Protocol Last Titration: 12/16/16 19:09 Dose: 16 munits/min, 96.09 mls/hr Ampicillin Sodium 1 gm/ Sodium (Chloride) 50 mls @ 100 mls/hr IV Q4H [facility] Last Admin: 12/16/16 15:30 Dose: 100 mls/hr Lidocaine HCl (Xylocaine 1%) 20 ml INJECT ONETIME ONE Stop: 12/16/16 19:13 Last Admin: 12/16/16 19:30 Dose: 20 ml Measles/Mumps/Rubella Vaccine Live (M-M-R Ii Vaccine) 0.5 ml SUBCUT .ONCE ONE Stop: 12/16/16 20:58 Ondansetron HCl (Zofran) 4 mg IVPUSH Q6H PRN PRN Reason: 1ST CHOICE FOR N/V Oxytocin (Pitocin) 10 unit IM ONETIME ONE Stop: 12/16/16 19:13 Last Admin: 12/16/16 19:12 Dose: 10 unit Promethazine HCl (Phenergan) 6.25 - 12.5 mg IV Q4H PRN PRN Reason: NAUSEA AND VOMITING - Interaction Infant Disposition, : in Room with Family Interaction: Holding Infant Infant Feeding: Breastfed Infant; Nursed Well Support Person: Sister, Friend - Recovery Exam Fundal Tone: Firm Fundal Level: 1 Fingerbreadths Below Umbilicus Fundal Placement: Midline Lochia Amount: Small, Moderate Lochia Color: Rubra/Red Perineum Description: Intact, Minimal Bruising/Swelling Episiotomy/Laceration: Approximated Bladder Status: Voiding - Exam Quality Assessment: DVT prophylaxis General: alert, oriented HEENT: EOMI, Mucous membr. moist/pink Neck: supple Lungs: Clear to auscultation, Normal respiratory effort Cardiovascular: Regular Rate, Regular Rhythm, No Murmurs Abdomen: bowel sounds present, soft, no distension, rigidity, other (uterus firm ). No: CVA tenderness Extremities: no calf tenderness Skin: warm, dry, intact, ecchymosis (minimal to low back for epidural attempts. no warmth or induration. ) Wound/Incisions: healing well Neurological: no new focal deficit Psy/Mental Status: alert, normal affect, normal mood - Problem List & Annotations (1) (normal spontaneous vaginal delivery) SNOMED Code(s): 22980747 Code(s): O80 - ENCOUNTER FOR FULL-TERM UNCOMPLICATED DELIVERY Status: Acute Current Visit: Yes Onset Date: 12/16/16 (2) Second degree perineal laceration during delivery, delivered SNOMED Code(s): 7295754 Code(s): O70.1 - SECOND DEGREE PERINEAL LACERATION DURING DELIVERY Status: Acute Priority: Medium Current Visit: Yes Onset Date: 12/16/16 (3) anemia SNOMED Code(s): 444496038 Code(s): O90.81 - ANEMIA OF THE PUERPERIUM Status: Acute Priority: Medium Current Visit: Yes Onset Date: 12/16/16 (4) Breast feeding status of mother SNOMED Code(s): 034077184 Code(s): Z39.1 - ENCOUNTER FOR CARE AND EXAMINATION OF LACTATING MOTHER Status: Acute Priority: High Current Visit: Yes Onset Date: 12/16/16 (5) Not immune to rubella SNOMED Code(s): 226512013 Code(s): Z78.9 - OTHER SPECIFIED HEALTH STATUS Status: Chronic Current Visit: Yes Annotation/Comment:: will receive immunization post . (6) Group B Streptococcus carrier, antepartum SNOMED Code(s): 3652003611531 Code(s): O99.820 - STREPTOCOCCUS B CARRIER STATE COMPLICATING Status: Resolved Priority: High Current Visit: Yes Annotation/Comment:: Ampicillin per GBS protocol. (7) Antepartum anemia SNOMED Code(s): 202641305 Code(s): O99.019 - ANEMIA COMPLICATING , UNSPECIFIED TRIMESTER Status: Chronic Priority: Medium Current Visit: Yes Qualifiers: Trimester: third trimester Qualified Code(s): O99.013 - Anemia complicating , third trimester (8) Group B Streptococcus carrier, delivered, current hospitalization SNOMED Code(s): 0501654452284, 9876299237614 Code(s): O99.824 - STREPTOCOCCUS B CARRIER STATE COMPLICATING CHILDBIRTH Status: Acute Current Visit: Yes (9) Analgesia SNOMED Code(s): 99509371 Code(s): R20.0 - ANESTHESIA OF SKIN Status: Resolved Priority: High Current Visit: Yes Annotation/Comment:: Epidural placement failed. Intrathecal given. (10) Blood type A+ SNOMED Code(s): 394098963 Code(s): Z67.10 - TYPE A BLOOD, RH POSITIVE Status: Chronic Current Visit : Yes (11) SROM (spontaneous rupture of membranes) SNOMED Code(s): 811697873 Code(s): WOX0027 - Status: Resolved Priority: High Current Visit: Yes Onset Date: 12/15/16 Annotation/Comment:: Clear-moderate (12) History of epidural anesthesia SNOMED Code(s): 701939977 Code(s): Z98.890 - OTHER SPECIFIED POSTPROCEDURAL STATES Status: Resolved Priority: High Current Visit: Yes (13) History of depression SNOMED Code(s): 565646938 Code(s): Z86.59 - PERSONAL HISTORY OF OTHER MENTAL AND BEHAVIORAL DISORDERS Status: Inactive Current Visit: Yes Annotation/Comment:: (14) First stage of labor SNOMED Code(s): 5215012 Code(s): NTC7343 - Status: Resolved Priority: High Current Visit: Yes Onset Date: 12/15/16 (15) Normal , first SNOMED Code(s): 00066626, 068402241, 415673139, 459365335 Code(s): Z34.00 - ENCNTR FOR SUPRVSN OF NORMAL FIRST , UNSP TRIMESTER Status: Resolved Current Visit: Yes Qualifiers: Trimester: third trimester Qualified Code(s): Z34.03 - Encounter for supervision of normal first , third trimester - Problem List Review Problem List Initiated/Reviewed/Updated: Yes - My Orders Last 24 Hours: My Active Orders 12/16/16 16:25 Urinary Catheter Assessment [RC] QSHIFT 12/16/16 20:57 Cooling Warming Measures [RC] ASDIRECTED May Shower [RC] ASDIRECTED Acetaminophen [Tylenol] 650 mg PO Q4H PRN Docusate Sodium [Colace] 100 mg PO BID PRN Famotidine [Pepcid] 20 mg PO BID PRN Hydrocortisone [Proctozone-HC 2.5% Crm] See Dose Instructions TOP ASDIRECTED PRN Ibuprofen [Motrin] 600 mg PO Q4H PRN Methylergonovine [Methergine] 0.2 mg IM ONETIME PRN Simethicone 80 mg PO Q4H PRN Witch Izabella [Tucks] 1 pad TOP ASDIRECTED PRN Assess Lochia [WOMSER] Per Unit Routine Assess Uterine Involution [WOMSER] Per Unit Routine Breast Pump [WOMSER] Per Unit Routine 12/16/16 20:58 Ice Therapy [OM.PC] Per Unit Routine Perineal Care [OM.PC] Per Unit Routine Sitz Bath [OM.PC] Per Unit Routine 12/17/16 09:00 Vit/FA/Fe Fumarate [-U] 1 each PO DAILY Ferrous Sulfate 325 mg AM - Plan Plan:: DAY 1: 1. Healthy mom/ with uncomplicated vaginal delivery. 2. Received amp for gbs 3. pain management prn 4. up add stephanie, and routine monitoring and post cares. 5. plans to breast feed. labs in the morning. 6. start ferrous sulfate for anemia daily and continue PNV 7. MMR prior to discharge. Debriefed on status and expected course of cares. all questions answered and she agrees with planned management. Anticipate discharge with in 24-48h.
[2016-12-17] MEDS: Ampicillin 1 GM in Sodium Chloride 0.9% 50 ML IV SCH (19:33)
[2016-12-18] MEDS ORDERED: Ferrous Sulfate 325 MG Tab PO SCH (08:00)
[2016-12-18 09:17] VITALS: BP 139/59
[2016-12-18] MEDS: Prenatal Multivitamin with Calcium/Folic Acid/Fe Fumarate Cap PO SCH (09:41)
--- NOTE | 2016-12-18 11:59 | PCM.DCSUM1 ---
Discharge Summary - Hospital Course Free Text/Narrative:: PPD2: Josefina is a now a 26 y s/p at 39w0d to liveborn male (Brisa Conroy) with wt 7#10oz. Apgars 9/9. both doing well. breasting going well. lochia reduced. abdominal/jaylon pain controlled with OTC. Tolerating diet and ambulation. Good urine output. No BM. on stool softner. mild post anemia. no lightheadedness or dizziness on standing. no merino. back pain improved. swelling in legs improved without pain. bonding with . rooming in. Routine cares/teaching and assessments and nursing staff without concerns. wellbeing reassuring. Maternal labs were GBS pos-received full course ampicillin prior to delivery, Rubella -non-immune, RPR neg, Blood Type A+. Functional Status: Reports: pain controlled, tolerating diet, ambulating, urinating - Review of Systems General: Reports: No Symptoms HEENT: Reports: no symptoms Pulmonary: Reports: no symptoms Cardiovascular: Reports: No Symptoms Gastrointestinal: Reports: No symptoms Genitourinary: Reports: no symptoms Musculoskeletal: Reports: no symptoms Skin: Reports: no symptoms Neurological: Reports: No Symptoms Psychiatric: Reports: no symptoms - Interaction Disposition, : in Room with Family Interaction: Holding Infant Feeding: Breastfed Infant; Nursed Well Support Person: Sister, Friend - Recovery Exam Fundal Tone: Firm Fundal Level: 1 Fingerbreadths Below Umbilicus Fundal Placement: Midline Lochia Amount: Small, Moderate Lochia Color: Rubra/Red Perineum Description: Intact, Minimal Bruising/Swelling Episiotomy/Laceration: Approximated Bladder Status: Voiding - Exam Quality Assessment: DVT prophylaxis General: alert, oriented HEENT: EOMI, Mucous membr. moist/pink Neck: supple Lungs: Clear to auscultation, Normal respiratory effort Cardiovascular: Regular Rate, Regular Rhythm, No Murmurs Abdomen: bowel sounds present, soft, no distension, rigidity, other (uterus firm ). No: CVA tenderness Extremities: no calf tenderness Skin: warm, dry, intact, ecchymosis (minimal to low back for epidural attempts. no warmth or induration. ) Wound/Incisions: healing well Neurological: no new focal deficit Psy/Mental Status: alert, normal affect, normal mood - Discharge Data Discharge Date: 12/18/16 Discharge Disposition: Home, Self-Care 01 Condition: Good - Discharge Diagnosis/Problem(s) (1) (normal spontaneous vaginal delivery) SNOMED Code(s): 42080082 ICD Code: O80 - ENCOUNTER FOR FULL-TERM UNCOMPLICATED DELIVERY Status: Acute Onset Date: 12/16/16 (2) Second degree perineal laceration during delivery, delivered SNOMED Code(s): 7961211 ICD Code: O70.1 - SECOND DEGREE PERINEAL LACERATION DURING DELIVERY Status : Acute Priority: Medium Onset Date: 12/16/16 (3) anemia SNOMED Code(s): 365942189 ICD Code: O90.81 - ANEMIA OF THE PUERPERIUM Status: Acute Priority: Medium Onset Date: 12/16/16 (4) Breast feeding status of mother SNOMED Code(s): 405948431 ICD Code: Z39.1 - ENCOUNTER FOR CARE AND EXAMINATION OF LACTATING MOTHER Status: Acute Priority: High Onset Date: 12/16/16 (5) Not immune to rubella SNOMED Code(s): 516535013 ICD Code: Z78.9 - OTHER SPECIFIED HEALTH STATUS Status: Chronic Problem Details: will receive immunization post . (6) Group B Streptococcus carrier, antepartum SNOMED Code(s): 7967309059095 ICD Code: O99.820 - STREPTOCOCCUS B CARRIER STATE COMPLICATING Status: Resolved Priority: High Problem Details: Ampicillin per GBS protocol. (7) Antepartum anemia SNOMED Code(s): 390915525 ICD Code: O99.019 - ANEMIA COMPLICATING , UNSPECIFIED TRIMESTER Status: Chronic Priority: Medium Qualifiers: Trimester: third trimester Qualified Code(s): O99.013 - Anemia complicating , third trimester (8) Group B Streptococcus carrier, delivered, current hospitalization SNOMED Code(s): 5295721611872, 9421193845850 ICD Code: O99.824 - STREPTOCOCCUS B CARRIER STATE COMPLICATING CHILDBIRTH Status: Acute (9) Analgesia SNOMED Code(s): 54163094 ICD Code: R20.0 - ANESTHESIA OF SKIN Status: Resolved Priority: High Problem Details: Epidural placement failed. Intrathecal given. (10) Blood type A+ SNOMED Code(s): 600332610 ICD Code: Z67.10 - TYPE A BLOOD, RH POSITIVE Status: Chronic (11) SROM (spontaneous rupture of membranes) SNOMED Code(s): 638506903 ICD Code: IGM5251 - Status: Resolved Priority: High Onset Date: Problem Details: Clear-moderate (12) History of epidural anesthesia SNOMED Code(s): 131840167 ICD Code: Z98.890 - OTHER SPECIFIED POSTPROCEDURAL STATES Status: Resolved Priority: High (13) History of depression SNOMED Code(s): 248776600 ICD Code: Z86.59 - PERSONAL HISTORY OF OTHER MENTAL AND BEHAVIORAL DISORDERS Status: Inactive Problem Details: (14) First stage of labor SNOMED Code(s): 7336056 ICD Code: CLD5301 - Status: Resolved Priority: High Onset Date: (15) Normal , first SNOMED Code(s): 06996257, 685323680, 524713578, 894129032 ICD Code: Z34.00 - ENCNTR FOR SUPRVSN OF NORMAL FIRST , UNSP TRIMESTER Status: Resolved Qualifiers: Trimester: third trimester Qualified Code(s): Z34.03 - Encounter for supervision of normal first , third trimester - Patient Instructions Diet: Heart Healthy Diet, Drink 8-10+ Glasses/Day, No Alcoholic Beverages Activity: No Lifting Over 10 Pounds Driving: May Drive Today Showering/Bathing: May Shower Notify Provider of: Fever, Increased Pain, Swelling and Redness, Drainage, Nausea and/or Vomiting - Discharge Plan Prescriptions/Med Rec: Ferrous Sulfate 325 mg PO WITHBREAKFAST #90 tablet Home Medications: Home Meds Vit #49/Iron Fum/FA [Mini Tablet] 1 each PO DAILY 12/16/16 [ History] Ferrous Sulfate 325 mg PO WITHBREAKFAST #90 tablet 12/18/16 [Rx] Patient Handouts: Shaken Baby Syndrome, Jaundice, , Smoking Cessation, Tips for Success, [id number], Exclusive , Depression and Baby Blues, Baby Safe Sleeping Information, Circumcision, Infant, Care After , [id number], Baby Care, Home Care Instructions for Mom, Vaginal Delivery, Care After, Baby Safe Sleeping Information, [id number] Referrals: Megan Raya MD [Primary Care Provider] - (6 wk pp check.) - Discharge Summary/Plan Comment DC Time >30 min.: Yes Discharge Summary/Plan Comment: DAY 2: 1. Healthy mom/ with uncomplicated vaginal delivery. 2. Received amp for gbs 3. pain management prn 4. Routine post cares without event. 5. Breast feeding. breast pump rx provided. 6. start ferrous sulfate for anemia daily and continue PNV 7. MMR prior to discharge. 8. Follow up with me in 6 wks for PP exam and family planning review. Debriefed on status and expected course of cares. all questions answered and she agrees with planned management. Discharge with today. - Patient Data Vitals - Most Recent: Last Vital Signs Temp 98.4 F 12/18/16 08:30 Pulse 84 12/18/16 08:30 Resp 20 12/18/16 08:30 BP 139/59 L 12/18/16 08:30 Pulse Ox 99 12/18/16 08:30 Weight - Most Recent: 117.934 kg Lab Results - Last 24 hrs: Laboratory Tests 12/15/16 12/17/16 Range/Units 22:48 06:10 WBC 10.1 12.7 H (4.5-12.0) X10-3/uL RBC 4.20 3.49 (3.23-5.20) x10(6)uL Hgb 11.4 L 9.3 L (11.5-15.5) g/dL Hct 33.7 28.4 L (30.0-51.3) % MCV 80.4 81.2 (80-96) fL MCH 27.1 L 26.6 L (27.7-33.6) pg MCHC 33.8 32.7 (32.2-35.4) g/dL RDW 13.2 13.7 (11.5-15.5) % Plt Count 352 301 (125-369) X10(3)uL MPV 7.9 (7.4-10.4) fL Add Manual Diff Yes Neutrophils % (Manual) 79 (46-82) % Lymphocytes % (Manual) 15 (13-37) % Monocytes % (Manual) 6 (4-12) % Med Orders - Current: Current Medications Acetaminophen (Tylenol) 650 mg PO Q4H PRN PRN Reason: mild pain or fever Diphenhydramine HCl (Benadryl) 25 mg IVPUSH ASDIRECTED PRN PRN Reason: SEVERE EXTRAPYRAMIDAL SYMP Docusate Sodium (Colace) 100 mg PO BID PRN PRN Reason: Constipation Last Admin: 12/16/16 21:38 Dose: 100 mg Ephedrine Sulfate (Ephedrine Sulfate) 5 mg IVPUSH ASDIRECTED PRN PRN Reason: HYPOTENSION Famotidine (Pepcid) 20 mg PO BID PRN PRN Reason: Heartburn Last Admin: 12/16/16 21:38 Dose: 20 mg Ferrous Sulfate (Ferrous Sulfate) 325 mg PO WITHBREAKFAST [facility] Last Admin: 12/18/16 09:41 Dose: 325 mg Hydrocortisone (Proctozone-Hc 2.5% Crm) 0 gm TOP ASDIRECTED PRN PRN Reason: Itching Hydroxyzine HCl (Vistaril) 25 - 50 mg IM Q6H PRN PRN Reason: PRURITUS Hydroxyzine HCl (Vistaril) 25 - 50 mg IM Q4H PRN PRN Reason: N/V Naloxone HCl 0.4 mg/ Sodium (Chloride) 101 mls @ 25 mls/hr IV ASDIRECTED PRN PRN Reason: RESPIRATORY STATUS Ibuprofen (Motrin) 600 mg PO Q4H PRN PRN Reason: Pain Last Admin: 12/17/16 22:10 Dose: 600 mg Methylergonovine Maleate (Methergine) 0.2 mg IM ONETIME PRN PRN Reason: Excessive vaginal bleeding Miscellaneous Information (Remove Patch) 1 ea TRDERM ASDIRECTED [facility] Nalbuphine HCl (Nubain) 10 mg IVPUSH Q1H PRN PRN Reason: PRURITUS Naloxone HCl (Narcan) 0.1 mg IVPUSH ASDIRECTED PRN PRN Reason: RESPIRATROY STATUS Naloxone HCl (Narcan) 0.2 mg IVPUSH ASDIRECTED PRN PRN Reason: REVERSAL Naltrexone HCl (Naltrexone) 50 mg PO ONETIME [facility] Last Admin: 12/16/16 21:38 Dose: 50 mg Naltrexone HCl (Naltrexone) 50 mg PO ASDIRECTED PRN PRN Reason: REVERSAL Ondansetron HCl (Zofran) 4 mg IVPUSH Q6H PRN PRN Reason: nausea Multivit/Folic Acid/Iron (-U) 1 each PO DAILY [facility] Last Admin: 12/18/16 09:41 Dose: 1 each Promethazine HCl (Phenergan) 0 mg IV Q4H PRN PRN Reason: N/V Scopolamine (Transderm-Scop) 1.5 mg TOP ONETIME [facility] Last Admin: 12/16/16 15:27 Dose: 1.5 mg Simethicone (Simethicone) 80 mg PO Q4H PRN PRN Reason: Gas Sodium Chloride (Saline Flush) 10 ml FLUSH ASDIRECTED PRN PRN Reason: Keep Vein Open Witch Izabella (Tucks) 1 pad TOP ASDIRECTED PRN PRN Reason: Hemorrhoids Discontinued Medications Ampicillin Sodium (Ampicillin) Confirm Administered Dose 2 gm IV .STK-MED ONE Stop: 12/15/16 23:15 Last Admin: 12/15/16 23:24 Dose: Not Given Calcium Carbonate/Glycine (Tums) 500 mg PO Q2H PRN PRN Reason: Indigestion Last Admin: 12/16/16 03:02 Dose: 500 mg Calcium Carbonate/Glycine (Tums) 500 mg PO Q2H PRN PRN Reason: Indigestion Diphenhydramine HCl (Benadryl) 25 mg IVPUSH ASDIRECTED PRN PRN Reason: PRURITUS Diphenhydramine HCl (Benadryl) 25 mg IVPUSH ASDIRECTED PRN PRN Reason: PRURITUS Ephedrine Sulfate (Ephedrine Sulfate) 5 mg IVPUSH ASDIRECTED PRN PRN Reason: HYPOTENSION Hydroxyzine HCl (Vistaril) 25 - 50 mg IM Q6H PRN PRN Reason: PRURITUS &/OR NV Lactated Ringer's (Ringers, Lactated) 1,000 mls @ 125 mls/hr IV ASDIRECTED [facility] Last Admin: 12/16/16 18:23 Dose: 125 mls/hr Ampicillin Sodium 2 gm/ Sodium (Chloride) 100 mls @ 200 mls/hr IV ONETIME ONE Stop: 12/15/16 23:29 Last Admin: 12/15/16 23:23 Dose: 200 mls/hr Ampicillin Sodium 1 gm/ Sodium (Chloride) 50 mls @ 100 mls/hr IV Q4H [facility] Last Admin: 12/16/16 06:53 Dose: 100 mls/hr Oxytocin 10 unit/ Sodium (Chloride) 1,001 mls @ 12.01 mls/hr IV TITRATE LEÓN; 2 MUNITS/MIN PRN Reason: Protocol Last Titration: 12/16/16 19:09 Dose: 16 munits/min, 96.09 mls/hr Ampicillin Sodium 1 gm/ Sodium (Chloride) 50 mls @ 100 mls/hr IV Q4H [facility] Last Admin: 12/17/16 19:33 Dose: Not Given Naloxone HCl 0.4 mg/ Sodium (Chloride) 101 mls @ 25 mls/hr IV ASDIRECTED PRN PRN Reason: PER ORDER OF ANESTHESIA Lidocaine HCl (Xylocaine 1%) 20 ml INJECT ONETIME ONE Stop: 12/16/16 19:13 Last Admin: 12/16/16 19:30 Dose: 20 ml Measles/Mumps/Rubella Vaccine Live (M-M-R Ii Vaccine) 0.5 ml SUBCUT .ONCE ONE Stop: 12/16/16 20:58 Naloxone HCl (Narcan) 0.1 mg IVPUSH ASDIRECTED PRN PRN Reason: RESPIRATORY STATUS Ondansetron HCl (Zofran) 4 mg IVPUSH Q6H PRN PRN Reason: 1ST CHOICE FOR N/V Oxytocin (Pitocin) 10 unit IM ONETIME ONE Stop: 12/16/16 19:13 Last Admin: 12/16/16 19:12 Dose: 10 unit Promethazine HCl (Phenergan) 6.25 - 12.5 mg IV Q4H PRN PRN Reason: NAUSEA AND VOMITING *Q Meaningful Use (DIS) - VTE *Q VTE Criteria *Q: - Stroke *Q Stroke Criteria *Q: - AMI *Q AMI Criteria *Q:
== END 2016-12-18 13:00 | disposition home or self-care (01) | DRG 560 ==
LOC: FB.OBCHECK 21:41 → FB.OB 21:42 → FB.OBCHECK 22:35 → FB.OB 22:35 → UNDOADMIN 22:35 → FB.OB 12-16 19:12 → UNDODISIN 12-18 13:00
PROVIDERS: ADMIT Family Medicine; ATTEND Family Medicine
PROC: 10E0XZZ Delivery of Products of Conception, External Approach (ICD-10-PCS; principal; 2016-12-16)
PROC: 0KQM0ZZ Repair Perineum Muscle, Open Approach (ICD-10-PCS; 2016-12-16)
PROC: 00HU33Z Insertion of Infusion Device into Spinal Canal, Percutaneous Approach (ICD-10-PCS; 2016-12-16)
PROC: 3E0R3CZ (ICD-10-PCS; 2016-12-16)
DX: O70.1 Second degree perineal laceration during delivery (principal); O99.824 Streptococcus B carrier state complicating childbirth; O90.81 Anemia of the puerperium; O99.334 Smoking (tobacco) complicating childbirth; Z86.59 Personal history of other mental and behavioral disorders; Z3A.39 39 weeks gestation of pregnancy; F17.210 Nicotine dependence, cigarettes, uncomplicated; Z37.0 Single live birth
CPT/HCPCS: 36415; 85025; 85027; 90707; A9270-GY; J0290; J2270; J2590; J2795; J3010; J7030; J7040; J7050; J7120

== ENCOUNTER 2021-03-13 11:05 | Emergency (ER) | payer BC ==
--- NOTE | 2021-03-13 11:20 | EDM.PDOC ---
ED HPI GENERAL MEDICAL PROBLEM - General Stated Complaint: POSSIBLE MISCARRIAGE PER PT Time Seen by Provider: 03/13/21 11:15 Source of Information: Reports: Patient History Limitations: Reports: No Limitations - History of Present Illness INITIAL COMMENTS - FREE TEXT/NARRATIVE: 30-year-old female who is and approximately 13 weeks by ultrasound with an EDC of 09/17/2021 who presents to the emergency department today complaining of lower abdominal/pelvic cramping which began at 8 to 9 AM yesterday and continued all through the day but seemed to improve in the evening. She had no vaginal bleeding yesterday. This morning she awoke and was feeling better with only mild lower abdominal cramping that she would rate as a 3/10 but she also noted that she had some bright red blood per vagina and a few small clots. There is no tissue passed. The pain is a crampy type pain and it is nonradiating. She has had no back pain. No fevers or chills. No dysuria or hematuria. No nausea or vomiting. She had been eating and drinking normally prior to this. There is no history of trauma. There are no other associated signs or symptoms. There are no other modifying factors. Onset: Other (Yesterday morning) Duration: Getting Worse (With vaginal bleeding today. 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) Abdomen Pain Score (Numeric/FACES): 3 - Related Data Allergies Allergy/AdvReac Type Severity Reaction Status Date / Time No Known Allergies Allergy Verified 11/25/16 20:29 Home Meds: Home Meds Vit #49/Iron Fum/FA [Mini Tablet] 1 each PO DAILY 12/16/16 [History] Ferrous Sulfate 325 mg PO WITHBREAKFAST #90 tablet 12/18/16 [Rx] 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: Psychiatric History: Reports: Anxiety, Depression - Past Surgical History GI Surgical History: Reports: Cholecystectomy Musculoskeletal Surgical History: Reports: Other (See Below) (Right knee surgery, open) Social & Family History - Tobacco Use Tobacco Use Status *Q: Unknown Ever Used Tobacco (Nonsmoker.) - Caffeine Use Caffeine Use: Reports: None - Alcohol Use Alcohol Use History: No - Living Situation & Occupation 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 Denies: Throat Swelling Respiratory: Denies: Shortness of Breath, Cough Cardiovascular: Denies: Chest Pain, Dyspnea on Exertion GI/Abdominal: Denies: Decreased Appetite, Nausea, Vomiting : Reports: Other (Vaginal bleeding). Denies: Dysuria, Frequency Musculoskeletal: Denies: Neck Pain, Back Pain Skin: Denies: Diaphoresis, Rash Neurological: Denies: Dizziness, Headache Hematologic/Lymphatic: Denies: Anemia, Easy Bleeding, Easy Bruising ED EXAM, GENERAL - Physical Exam Exam: See Below Exam Limited By: No Limitations General Appearance: Alert, No Apparent Distress, Obese Eye Exam: Bilateral Eye: EOMI, Normal Inspection Ears: Normal External Exam, Hearing Grossly Normal Ear Exam: Bilateral Ear: Auricle Normal Nose: Normal Inspection, Normal Mucosa, No Blood Throat/Mouth: Normal Lips, Normal Oropharynx, Normal Voice, No Airway Compromise Head: Atraumatic, Normocephalic Neck: Normal Inspection, Supple, Non-Tender, Full Range of Motion Respiratory/Chest: No Respiratory Distress, Lungs Clear, Normal Breath Sounds, No Accessory Muscle Use, Chest Non-Tender Cardiovascular: Normal Peripheral Pulses, Regular Rate, Rhythm, No Murmur Peripheral Pulses: 2+: Radial (L), Radial (R), Dorsalis Pedis (L), Dorsalis Pedis (R) GI/Abdominal: Normal Bowel Sounds, Soft, Non-Tender, No Mass Back Exam: Normal Inspection, Full Range of Motion. No: CVA Tenderness (R), CVA Tenderness (L) Extremities: Normal Inspection, Normal Range of Motion Neurological: Alert, Oriented, CN II-XII Intact, Normal Cognition, No Motor/Sensory Deficits Psychiatric: Depressed Mood Skin Exam: Warm, Dry, Intact, Normal Color, No Rash Course - Vital Signs Last Recorded V/S: Last Vital Signs Temp 36.3 C 03/13/21 11:06 Pulse 73 03/13/21 11:06 Resp 18 03/13/21 11:06 BP 156/73 H 03/13/21 11:06 Pulse Ox 98 03/13/21 11:06 - Re-Assessments/Exams Free Text/Narrative Re-Assessment/Exam: 03/13/21 11:37: Patient with late first trimester bleeding. She will need an ultrasound to fully evaluate her. She presents healthcare does not have ultrasound capability at this time. Therefore, the patient will need to be transferred to a facility where there is ultrasound capability. I discussed this with the patient and the patient would want me to discuss her case with the doctors at [facility] in [place]. I did call and discuss this with Dr. Banuelos, ED physician at [facility] in [place], and he has agreed to accept the patient in transfer. He does not want any other testing done at this time. The patient will be transferred via private vehicle emergency department for completion of evaluation. I discussed this with the patient and she is in agreement with this plan. Departure - Departure Time of Disposition: 11:45 Disposition: DC/Tfer to Acute Hospital 02 Condition: Good Clinical Impression: First trimester bleeding - Discharge Information Referrals: Monse Gant [facility] [employer] [facility] [Primary Care Provider] - Additional Instructions: Go directly to the emergency department at . You should not have anything to eat or drink until you are cleared to do so by the doctors at [facility] in [place]. Sepsis Event Note (ED) - Focused Exam Vital Signs: Vital Signs Temp Pulse Resp BP Pulse Ox 03/13/21 11:06 36.3 C 73 18 156/73 H 98
[2021-03-13 13:07] VITALS: BP 152/68; PULSE 70
== END 2021-03-13 12:07 ==
LOC: FB.ED 11:05
DX: O20.9 Hemorrhage in early pregnancy, unspecified (principal); Z3A.13 13 weeks gestation of pregnancy
CPT/HCPCS: 99284; 99285